=== PATIENT | female | born 1995 | race Caucasian/White ===

== ENCOUNTER 2016-10-28 13:06 | Emergency (ER) | payer OTHER ==
[~2016-10-28] VITALS: Ht 160 cm; Wt 50.0 kg
[~2016-10-28 13:06] MED LIST: LEVE250T55 PO; PREN1TAB80 PO
[2016-10-28] MEDS ORDERED: LevETIRAcetam 1,000 MG in DEXTROSE 5%-WATER 100 ML IV ONE (14:00)
[2016-10-28 14:19] LABS: BASOPHILS # (AUTO) 0.01 K/uL (0.00-0.20); BASOPHILS % (AUTO) 0.2 % (0.0-2.0); EOSINOPHILS # (AUTO) 0.12 K/uL (0.00-0.70); EOSINOPHILS % (AUTO) 1.84 % (1.0-6.0); HEMATOCRIT 39.9 % (36-46); HEMOGLOBIN 12.8 g/dL (12.0-16.0); LYMPHOCYTES # (AUTO) 1.7 K/uL (1.0-4.8); LYMPHOCYTES % (AUTO) 25.8 % (22.0-44.0); MEAN CORPUSCULAR HEMOGLOBIN 26.7 pg (26.0-34.0); MEAN CORPUSCULAR VOLUME 83 fL (80-100); MONOCYTES # (AUTO) 0.3 K/uL (0.1-1.0); MONOCYTES % (AUTO) 4.8 % (2.0-9.0); NEUTROPHILS # (AUTO) 4.5 K/uL (1.8-7.7); NEUTROPHILS % (AUTO) 67.3 % (40.0-70.0); PLATELET COUNT (AUTO) 304 K/uL (150-450); RED BLOOD CELL COUNT(AUTO) 4.79 MIL/uL (4.00-5.20); RED CELL DISTRIBUTION WIDTH 15.5 % (11.5-14.5); WHITE BLOOD COUNT (AUTO) 6.6 K/uL (4.5-11.0)
[2016-10-28 14:28] LABS: ANION GAP 6 mmol/L (8-16); CALCIUM, TOTAL 9.6 mg/dL (8.8-10.5); CARBON DIOXIDE 29 mmol/L (22-29); CHLORIDE 103 mmol/L (98-107); CREATININE 0.73 mg/dL (0.60-1.30); GLOMERULAR FILTR. RATE CALC > 60 mL/min (>60); POTASSIUM 4.5 mmol/L (3.5-5.1); SODIUM SERUM 138 mmol/L (136-145); UREA NITROGEN, BLOOD 6 mg/dL (7-18)
[2016-10-28 14:33] LABS: ALANINE AMINOTRANSFERASE 19 U/L (12-78); ASPARTATE AMINOTRANSFERASE 12 U/L (15-37); BILIRUBIN,TOTAL 0.3 mg/dL (0.1-1.0); TOTAL PROTEIN, SERUM 8.5 g/dL (6.4-8.2)
[2016-10-28 15:10] VITALS: BP 95/39
[2016-10-28] MEDS ORDERED: ACETAMINOPHEN 500 MG TABLET PO ONE (15:45)
== END 2016-10-28 16:04 | disposition home or self-care (01) ==
LOC: EMS 13:07
DX: O26.893 Other specified pregnancy related conditions, third trimester (principal); G40.909 Epilepsy, unspecified, not intractable, without status epilepticus; R41.0 Disorientation, unspecified; Z3A.31 31 weeks gestation of pregnancy; Z91.012 Allergy to eggs; Z91.013 Allergy to seafood
CPT/HCPCS: 36415; 80053; 84703; 85025; 96365; 99284; G0480; J0712; J7060

== ENCOUNTER 2019-07-02 12:15 | Emergency (ER) | payer MEDICARE, OTHER ==
[~2019-07-02] VITALS: Ht 160 cm; Wt 65.0 kg
[~2019-07-02 12:15] MED LIST changes: -PREN1TAB80 PO
[2019-07-02] MEDS ORDERED: CARB100 PO (13:04)
[2019-07-02] MEDS ORDERED: ACETAMINOPHEN 500 MG TABLET PO ONE (13:30)
[2019-07-02 14:23] VITALS: BP 102/66
== END 2019-07-02 14:44 | disposition home or self-care (01) ==
LOC: EMS 12:19
DX: B34.9 Viral infection, unspecified (principal); G40.909 Epilepsy, unspecified, not intractable, without status epilepticus; Z91.013 Allergy to seafood; Z91.012 Allergy to eggs; Z79.899 Other long term (current) drug therapy